=== PATIENT | female | born 1975 | race Caucasian/White ===

== ENCOUNTER → 2016-05-19 | Outpatient (CLI) | payer OTHER ==
--- NOTE | 2016-05-19 11:22 | ECHOF ---
Referral Reason:R55 syncope MEASUREMENTS -------- HEIGHT: 160.0 cm WEIGHT: 86.2 kg BP: 142/69 RVIDd: 3.0 cm (< 3.3) IVSd: 1.2 cm (0.6 - 1.1) LVIDd: 4.5 cm (3.9 - 5.3) LVPWd: 1.1 cm (0.6 - 1.1) IVSs: 1.6 cm LVIDs: 3.1 cm LVPWs: 1.5 cm LA Diam: 3.1 cm (2.7 - 3.8) LAESV Index (A-L): 18.44 ml/m Ao Diam: 3.6 cm (2.0 - 3.7) AV Cusp: 2.0 cm (1.5 - 2.6) MV EXCURSION: 18.872 mm (> 18.000) MV EF SLOPE: 106 mm/s (70 - 150) EPSS: 0.7 cm MV E Ricardo: 1.02 m/s MV DecT: 206 ms MV A Ricardo: 0.80 m/s MV E/A Ratio: 1.28 FINDINGS -------- Sinus rhythm. This was a technically good study. The left ventricular size is normal. There is borderline concentric left ventricular hypertrophy. Overall left ventricular systolic function is normal with, an EF between 55 - 60 %. The right ventricle is normal in size. Normal LA size by volume 22+/-6 ml/m2. The right atrium is normal in size. The aortic valve is trileaflet and appears structurally normal. The mitral valve is normal. The tricuspid valve appears structurally normal. No regurgitation noted The pulmonic valve was not well visualized. There is no pulmonic regurgitation present. The aortic root size is normal. Normal inferior vena cava with normal inspiratory collapse consistent with estimated right atrial pressure of 5 mmHg. There is no pericardial effusion. CONCLUSIONS -------- 1. Sinus rhythm. 2. No regurgitation noted 3. The pulmonic valve was not well visualized. 4. There is no pulmonic regurgitation present. 5. The aortic root size is normal. 6. Normal inferior vena cava with normal inspiratory collapse consistent with estimated right atrial pressure of 5 mmHg. 7. There is no pericardial effusion. 8. This was a technically good study. 9. The left ventricular size is normal. 10. There is borderline concentric left ventricular hypertrophy. 11. The right ventricle is normal in size. 12. Normal LA size by volume 22+/-6 ml/m2. 13. The aortic valve is trileaflet and appears structurally normal. 14. The mitral valve is normal. 15. The tricuspid valve appears structurally normal. PATCH WORKER: Aura Zhang RDCS
== END | disposition home or self-care (01) ==
LOC: RADECHMAIN 08:36
PROVIDERS: ATTEND Internal Medicine
DX: I51.7 Cardiomegaly (principal)
CPT/HCPCS: 93306

== ENCOUNTER → 2016-05-20 | Outpatient (CLI) | payer OTHER ==
[2016-05-20 07:53] LABS: Blood Urea Nitrogen 7 mg/dL (7-17); Non-African American GFR(MDRD) >60 (>60 ml/min/1.73 sqM)
--- NOTE | 2016-05-20 09:13 | MR ---
EXAMINATION TYPE: MR brain wo/w con DATE OF EXAM: 05/20/2016 9:04 AM COMPARISON: Prior MRI brain October 05, 2015. HISTORY: Headaches per order. Additional symptoms of syncope per patient. TECHNIQUE: Multiplanar, multisequence images of the brain and brainstem is performed without and with IV contras t, utilizing 20 mL intravenous MultiHance . FINDINGS: Diffusion weighted images demonstrate no evidence of a recent infarct or other diffusion ab normality. There is no worrisome extra-axial fluid collection. The ventricular system and cisternal spaces are normal in size and appearance. The brain volume is age appropriate. There are scattered foci of T2 hyperintensity seen throughout the white matter bilaterally most pronounced involving the subcortical white matter of the frontal lobes. I estimates 30-35 scattered lesions without significan t change in size or number from prior exam. For reference 3 lesions are noted bilaterally on axial im age 20 unchanged in size and appearance from prior study image 21. For reference there is 4 mm round lesion left frontal lobe on axial image 24 unchanged from prior study, adjacent 3 mm lesion is unchan ged. No definitive infratentorial lesion, artifact felt present on prior study in the negrito as did not reproduce on T2 axial sequence. Midline structures demonstrate normal morphology. The craniocervical junction appears within normal limits. Post contrast images demonstrate no abnormal enhancement. The dural venous sinuses appear pa tent. The visualized sinuses are clear and the globes are intact. IMPRESSION: Fairly moderate nonspecific white matter changes redemonstrated as detailed above. Findin gs may be product of ischemic change related to known migraine headaches. Other etiologies are not ex cluded. No new or enhancing lesions are evident. Findings felt stable from prior exam.
== END | disposition home or self-care (01) ==
LOC: RADMRIMAIN 07:33
PROVIDERS: ATTEND Psychiatry & Neurology Neurology
DX: R90.82 White matter disease, unspecified (principal)
CPT/HCPCS: 82565; 84520; 70553; A9577

== ENCOUNTER → 2017-06-28 | Outpatient (CLI) | payer OTHER ==
--- NOTE | 2017-06-28 08:50 | MR ---
EXAMINATION TYPE: MR cervical spine wo con DATE OF EXAM: 06/28/2017 COMPARISON: 10/05/2015 HISTORY: Cervical Disc degeneration TECHNIQUE: Multiplanar, multisequence images of the cervical spine were acquired. FINDINGS: The cervical spine vertebral bodies maintain normal vertebral body height and alignment. Darryl ne marrow signal is within normal limits. Spinal cord signal of the visualized cervical spine is also within normal limits. Posterior fossa is unremarkable. C2-C3: There is a small central disc osteophyte complex identified without spinal canal stenosis or n eural foraminal narrowing. C3-C4: There is mild left uncovertebral hypertrophy minimally narrowing the left neural foramen. Ther e is also disc desiccation without focal disc herniation. Right neural foramen and spinal canal are p atent. C4-C5: There is a small left eccentric broad-based disc bulge minimally effacing the ventral subarach noid space with preservation of cerebrospinal fluid between the disc bulge and the cervical spinal co rd. No neural foraminal narrowing. C5-C6: There is a right paracentral disc herniation/extrusion with 4 mm cranial extension of the disc fragment. This effaces the ventral subarachnoid space and creates mild spinal canal stenosis. No alt eration of the spinal cord signal. Minimal uncovertebral hypertrophy is seen without neural foraminal narrowing bilaterally. C6-C7: Disc desiccation is noted. No disc bulge/herniation or protrusion. No Canal stenosis. Beba wendy are patent bilaterally. There is very mild uncovertebral hypertrophy bilaterally. C7-T1: No evidence for degenerative disc disease. No disc bulge/herniation or protrusion. No Canal stenosis. Foramina are patent bilaterally. There is slight heterogeneity of the thyroid gland, similar to exam of 2016. IMPRESSION: 1. Progressed degenerative disc disease now with focal disc herniation at C5-C6 and the location of t he previously seen disc bulge. This herniation has a component of 4 mm cranial extension/extrusion of the disc material an results in mild spinal canal stenosis. 2. Mild multilevel degenerative disc disease resulting in mild left neural foraminal narrowing at C3- C4.
== END | disposition home or self-care (01) ==
LOC: RADMRIMAIN 06:12
PROVIDERS: ATTEND Physician Assistant Medical
DX: M48.02 Spinal stenosis, cervical region (principal); M99.71 Connective tissue and disc stenosis of intervertebral foramina of cervical region; M50.221 Other cervical disc displacement at C4-C5 level; M50.322 Other cervical disc degeneration at C5-C6 level; I10 Essential (primary) hypertension
CPT/HCPCS: 72141

== ENCOUNTER → 2018-07-26 | Outpatient (CLI) | payer OTHER ==
--- NOTE | 2018-07-26 12:18 | CONS ---
CONSULTATION DATE OF SERVICE: 07/26/2018 A 42-year-old lady who has been evaluated in the Sleep Center for possible obstructive sleep apnea-hypopnea syndrome and significant excessive daytime sleepiness. HISTORY OF PRESENT ILLNESS/SLEEP-WAKE EVALUATION: Patient had been diagnosed with obstructive sleep apnea about 10 years ago, was treated with CPAP at that time, but then for different reasons, CPAP was stopped. Presently, she snores and has multiple awakenings from sleep up to 5 times with dry mouth, panic attack, heartburn, and restless legs. Her sleep schedule on working days from 8 p.m. to 6 a.m., on weekends from 9 p.m. to 6 a.m. and sometimes she has problem with falling asleep. She is using trazodone at bedtime to help her to fall asleep and sleep at night. She has TV set in bedroom, usually sleeps on the side position. She wakes up from sleep up to 5 times with 3 episodes of nocturia, positive history of kicking at night. No history of hypnagogic hallucinations, sleep paralysis or cataplexy. In the morning, patient wakes up tired, has difficulties to pay attention, falling asleep during the day. Worry about her sleep, has problems with memory, concentration, irritability, depression and anxiety. [place] Sleepiness Scale significantly increased to 22. PAST MEDICAL HISTORY: Positive for COPD, rheumatoid arthritis, fibromyalgia, depression, bipolar disorder. PAST SURGICAL HISTORY: , bilateral surgery for carpal tunnel syndrome, surgery for two disc replacement in her neck at the level of C4 and C5 in 2018. MEDICATIONS: Ibuprofen, gabapentin, Saphris, [place], albuterol, topiramate, duloxetine, trazodone. SOCIAL HISTORY: Positive for smoking for about 20 years, starting from 2 packs a day now one pack a day. Alcohol consumption rarely. FAMILY HISTORY: Hypertension, hyperlipidemia, epilepsy, fibromyalgia, arthritis, sleep apnea, headaches, narcolepsy, acid reflux, restless legs. REVIEW OF SYSTEMS: Multiple awakenings from sleep, significant excessive daytime sleepiness. Patient takes two naps a day, usually in the evening. Does not feel refreshed after naps and see vivid dreams during naps. PHYSICAL EXAM: Compassionate lady without distress. BP 121/88, HR 89, R RR 16, height 5 foot 3-1/2 inches, weight 181.6 pounds, body mass index 32. Temperature 98.3, oxygen saturation at room air 98/ OROPHARYNX: Extremely low position of soft palate, Mallampati 4. NECK: 15-1/2 inches in circumference. ABDOMEN:: Slightly obese. LUNGS Clear to percussion and to auscultation. Good air exchange. No wheezing or rhonchi. HEART S1, S2 regular. No murmurs, gallops, or rubs. EXTREMITIES No clubbing or cyanosis. SKILL TRAINING PROGRAM COORDINATOR Awake, alert, and oriented X3. Cranial nerves 2 to 7 intact. There is no fasciculation or atrophy. noted. No focal deficits observed. Possibly slight ulnar deformation of the hands. IMPRESSION: 1. Snoring, multiple awakenings from sleep, extremely low position of soft palate. 2. History of obstructive sleep apnea in the past, i.e., significant excessive daytime sleepiness. Obstructive sleep apnea-hypopnea syndrome. 3. Significant excessive daytime sleepiness. [place] Sleepiness Scale is in the 75 range of 22. Dreams during naps. 4. History of narcolepsy in the family. Differential diagnosis should include hypersomnia including narcolepsy. 5. History of chronic obstructive pulmonary disease, smoker for close to 40 pack years. Continued to smoke. 6. History of rheumatoid arthritis. 7. History of fibromyalgia. 8. History of depression. 9. History of bipolar disorder. 10.Status post . 11.History of carpal tunnel syndrome bilaterally, status post surgical treatment. 12.History of neck arthritis, status post two disc replaced from the level C4-C5 in 2018. PLAN: 1. Polysomnography for evaluation of patient's breathing during sleep. 2. CPAP/BiPAP titration if sleep study confirms obstructive sleep apnea-hypopnea syndrome. 3. Preferable position during sleep on the side. 4. No driving if patient feels any sleepiness. 5. I will see patient for follow up visit to explain results of testing and following plan. 6. Multiple sleep latency test if sleep study will be negative for obstructive sleep apnea-hypopnea syndrome. Thank you very much for referring this patient for consultation. Sincerely, Bernard Saxena MD, PhD, FAASM Diplomat of [employer] Bombsight Specialist of [facility] [place] MMODL / IJN: [id number] /
== END ==
LOC: SLEEP 10:56
PROVIDERS: ATTEND Internal Medicine
DX: G47.33 Obstructive sleep apnea (adult) (pediatric) (principal); J44.9 Chronic obstructive pulmonary disease, unspecified; F17.219 Nicotine dependence, cigarettes, with unspecified nicotine-induced disorders; M06.9 Rheumatoid arthritis, unspecified; M79.7 Fibromyalgia; F31.9 Bipolar disorder, unspecified; E66.9 Obesity, unspecified; M47.812 Spondylosis without myelopathy or radiculopathy, cervical region; Z98.890 Other specified postprocedural states; Z87.39 Personal history of other diseases of the musculoskeletal system and connective tissue; Z68.32 Body mass index [BMI] 32.0-32.9, adult; Z83.6 Family history of other diseases of the respiratory system; Z79.891 Long term (current) use of opiate analgesic; Z79.51 Long term (current) use of inhaled steroids; Z79.1 Long term (current) use of non-steroidal anti-inflammatories (NSAID); Z79.899 Other long term (current) drug therapy
CPT/HCPCS: 99211

== ENCOUNTER → 2018-09-12 | Outpatient (CLI) | payer OTHER ==
--- NOTE | 2018-09-12 12:41 | SFUN ---
SLEEP CENTER FOLLOW UP NOTE DATE OF SERVICE: 09/12/2018 A 42-year-old lady who has been followed in the Sleep Center to discuss results of sleep studies and following plan. The patient continued to have extreme symptoms of sleepiness. [place] Sleepiness Scale today is 22. I discussed results of sleep studies with patient in detail. A diagnostic polysomnogram did not show any significant respiratory abnormalities. Total apnea- hypopnea index only 1.3, normal oxygenation during the sleep. The following multiple sleep latency test consisted from 5 naps. The patient fell asleep on all naps very quickly. Mean sleep latency was very short 4.7 minutes and that with severe migraine which patient experienced at the time of . Without migraine, I believe her sleep latency will be more short. MEDICATIONS: Ibuprofen, gabapentin, Saphris, [place], albuterol, topiramate, duloxetine, trazodone. PHYSICAL EXAM: Patient in no distress. BP 129/77, HR 90, RR 16, temperature 97.4. HEENT PERRLA, EOMI, evaluation of oropharynx showed tongue protrudes midline. Neck Supple, no JVD. Thyroid is not palpable. LUNGS Clear to percussion and to auscultation. Good air exchange. No wheezing or rhonchi. HEART S1, S2 regular. No murmurs, gallops, or rubs. ABDOMEN Soft and nontender. Bowel sounds are present. No organomegaly appreciated. EXTREMITIES No clubbing or cyanosis. GRAPHIC ART SALES REPRESENTATIVE Awake, alert, and oriented X3. Cranial nerves 2 to 7 intact. There is no fasciculation or atrophy. noted. No focal deficits observed. IMPRESSION: 1. Multiple sleep latency test confirmed sleepiness even while patient has migraine attack while she was on during the test. Mean sleep latency 4.7 minutes. No sleep onset REM periods have been documented, but again patient had a migraine at the time of the test, narcolepsy. 2. History of chronic obstructive pulmonary disease. 3. History of depression. 4. History of bipolar. 5. Status post bilateral surgery for carpal tunnel syndrome. PLAN: 1. Patient will be started on the smallest dose of Adderall 5 mg in the morning and around 1 pm. I will adjust the dose accordingly to prevent her sleepiness. 2. Patient referred symptoms of any side effects as soon as possible in view of the present relationship to mood, heart rate and blood pressure. 3. Sleep hygiene with regular time in bed for at least 7-1/2 - 8 hours. 4. Daytime naps permitted. 5. No driving if feeling any sleepiness. 6. Followup visit in 2 to 3 months. Thank you very much for allowing me to participate in the management of your patient. Sincerely, Bernard Saxena MD, PhD, FAASM Diplomat of [employer] Board of Internal Medicine Integrity Analyst of [facility] [place] MMODL / MEGHANN: [id number] /
== END | disposition home or self-care (01) ==
LOC: SLEEP 11:01
PROVIDERS: ATTEND Internal Medicine
DX: G47.10 Hypersomnia, unspecified (principal); G43.909 Migraine, unspecified, not intractable, without status migrainosus; G47.419 Narcolepsy without cataplexy; Z86.59 Personal history of other mental and behavioral disorders; Z87.09 Personal history of other diseases of the respiratory system; Z87.39 Personal history of other diseases of the musculoskeletal system and connective tissue; Z98.890 Other specified postprocedural states; Z79.891 Long term (current) use of opiate analgesic; Z79.899 Other long term (current) drug therapy

== ENCOUNTER → 2020-04-16 | Outpatient (CLI) | payer OTHER ==
--- NOTE | 2020-04-16 23:48 | MR ---
EXAMINATION TYPE: MR cspine/lspine wo con DATE OF EXAM: 04/16/2020 COMPARISON: MRI lumbar spine October 05, 2015. MRI cervical spine June 28, 2017. HISTORY: Headaches, Neck pain into both arms. Middle lower back pain into buttocks. TECHNIQUE: Multiplanar, multisequence imaging of the cervical and lumbar spine are performed without IV contrast. FINDINGS: Current exam suboptimal as is degraded by patient motion. C-SPINE: FINDINGS: Sagittal images of the cervical spine show the craniocervical junction to remain within nor mal limits. The cervical and upper thoracic spinal cord is likely normal in caliber and signal. Esther fact degradation is present. There is interval surgery with artifact from surgical hardware at C5-C6 level. The vertebral body and intravertebral disk heights are normal above and below surgical levels . The bone marrow signal intensity is within normal limits above and below surgical levels. Axial images show C2-C3 level to remain within normal limits. Axial images at C3-C4 level demonstrates left-sided uncovertebral facet degenerative change causing m inimal left-sided neural foraminal narrowing. There is tiny disc protrusion minimally effacing anteri or thecal sac. No significant change from prior. Axial images at C4-C5 level redemonstrate left broad-based posterior disc protrusion mildly facing an terior thecal sac, PA and bilateral neural foramina. No significant change from prior. Axial images at C5-C6 level show significant blooming artifact from interval surgical change making e valuation suboptimal. Axial images at C6-C7 level show artifact from surgical change. There are patent bilateral neural for dwayne. The spinal canal preserved. Axial images at C7-T1 level remain within normal limits. IMPRESSION: Current exam suboptimal. Interval surgery C5-C6 level. Stable mild degenerative changes o therwise noted. L-SPINE: Sagittal images of the lumbar spine show vertebral body heights and alignment to remain satisfactory. Persistent multilevel disc desiccation and disc space heights are maintained. The conus medullaris remains normal in position and signal ending mid L1 level. The bone marrow signal intensity shows sc attered small anterior hemangiomas. Axial images show T12-L1, L1-L2, and L2-L3 levels all to remain within normal limits. Axial images at L3-L4 level redemonstrate mild facet degenerative changes bilaterally. Axial images at L4-L5 level redemonstrated mild facet degenerative changes bilaterally. There is broa d-based posterior disc protrusion minimally effaces the anterior thecal sac. No significant change fr om prior. Axial images at L5-S1 level mild facet degenerative changes bilaterally. Spinal canal is preserved. Bilateral neural foramina. No significant change from prior. Paraspinal muscle bulk is maintained. IMPRESSION: Mild multilevel degenerative changes mid to lower lumbar spine as detailed above. No sign ificant change from prior MRI.
== END | disposition home or self-care (01) ==
LOC: RADMRIMAIN 16:19
PROVIDERS: ATTEND Internal Medicine
DX: M47.812 Spondylosis without myelopathy or radiculopathy, cervical region (principal); M47.816 Spondylosis without myelopathy or radiculopathy, lumbar region; M47.817 Spondylosis without myelopathy or radiculopathy, lumbosacral region; Z98.890 Other specified postprocedural states
CPT/HCPCS: 72141; 72148

== ENCOUNTER → 2020-07-08 | Outpatient (CLI) | payer OTHER ==
--- NOTE | 2020-07-09 06:35 | SFUN ---
SLEEP CENTER FOLLOW UP NOTE DATE OF SERVICE: 07/08/2020 44-year-old lady has been followed in Sleep Center for treatment of narcolepsy. 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 With this regimen, she is not falling asleep as she did before treatment. Still has episodes of tiredness. Sometimes developed dryness in the mouth but able to maintain her alertness. [place] Sleepiness Scale today is 20. MEDICATIONS: Waterflow twice a day, losartan 50 mg once a day, leflunomide 20 mg once a day. Hydrochlorothiazide 12.5 mg once a day, sertraline 100 mg once a day. Zolpidem 5 mg once a day. Losartan 100 mg once a day, Orencia once a month. Ibuprofen 600 mg as needed. Loperamide 100 mg once a day. Adderall as I mentioned above. Patient continued to smoke half pack a day presently for 20 years. PHYSICAL EXAMINATION: GENERAL: Patient in no distress. BP 154/84, HR 105, RR 12, height 5 feet 3-1/2 inches, weight 179.0, temperature 96.9. Oxygen saturation at room air 99%. Body mass index 31.2. HEENT: PERRLA, EOMI, evaluation of oropharynx showed tongue protrudes midline. NECK: Supple, no JVD. Thyroid is not palpable. LUNGS: Clear to percussion and to auscultation. Good air exchange. No wheezing or rhonchi. HEART: S1, S2 regular. No murmurs, gallops, or rubs. ABDOMEN: Soft and nontender. Bowel sounds are present. No organomegaly appreciated. EXTREMITIES: No clubbing or cyanosis. MOTORCYCLE SALES ASSOCIATE: Awake, alert, and oriented X3. Cranial nerves 2 to 7 intact. There is no fasciculation or atrophy. noted. No focal deficits observed. IMPRESSION: 1. Narcolepsy without cataplexy. Pathological sleepiness confirmed by multiple sleep latency test. No sleep onset REM. Although have been documented during the sleep study. 2. History of chronic obstructive pulmonary disease. 3. Rheumatoid arthritis. 4. Fibromyalgia. 5. Depression. 6. Bipolar. 7. Status post surgical treatment for carpal tunnel syndrome bilaterally. 8. Status post surgery for the disc problem in the level C4, C5. 9. Smoker, presently half pack a day. 10.Hypertension in the office. PLAN: 1. The patient will continue treatment with Adderall 3 times a day 20 mg in the morning, 20 mg in the middle of the day and then 10 mg around 4:00 pm. 2. Extreme precautions to driving. No driving if feeling sleepiness. 3. Sleep hygiene with regular time in bed for 7-1/2 to 8 hours. 4. Daytime naps permitted. 5. Follow-up visit in 4-6 months. Thank you very much for allowing me to participate in management of your patient. Sincerely, Bernard Saxena MD, PhD, FAASM Diplomat of [employer] Board of Medical Specialties Danish Board of Internal Medicine Sprinkler Fitter Apprentice of [facility] [place] MMMAMADOUL / MEGHANN: [id number] /
== END ==
LOC: SLEEP 16:28
PROVIDERS: ATTEND Internal Medicine
DX: G47.419 Narcolepsy without cataplexy (principal); J44.9 Chronic obstructive pulmonary disease, unspecified; M06.9 Rheumatoid arthritis, unspecified; M79.7 Fibromyalgia; F31.9 Bipolar disorder, unspecified; F17.210 Nicotine dependence, cigarettes, uncomplicated; I10 Essential (primary) hypertension; Z98.890 Other specified postprocedural states; Z79.1 Long term (current) use of non-steroidal anti-inflammatories (NSAID); Z79.899 Other long term (current) drug therapy

== ENCOUNTER → 2021-09-16 | Outpatient (CLI) | payer OTHER ==
--- NOTE | 2021-09-16 14:18 | P.PN ---
Subjective DATE: 09/16/2021 FOLLOW UP VISIT. Patient returned to sleep center for follow-up visit related to treatment of significant excessive daytime sleepiness secondary to narcolepsy. Presently patient is on treatment with Adderall 20 mg twice a day and the 10 mg and the second part of the day. Patient still feels sleepiness during the day for sleepiness scale significantly increased to 22.MAPS overdose risk score is 140. No side effects of Adderall. . MEDICATIONS:1. Losartan 50 mg once a day 2. Bupropion 150 mg once a day 3. Hydrocodone 750 mg as needed 4. Adderall 20 mg 2-1/2 tablet daily 5. Prednisone 5 mg once a day During physical exam: GENERAL: A pleasant patient without any distress. VITAL SIGNS: BP 181/81, HR 95, RR 18, weight 177.4, temperature 97.4, oxygen saturation at room air 97%. HEENT: PERRLA, EOMI. NECK: Supple. No JVD. LUNGS: Clear to percussion and to auscultation. Good air exchange. No wheezing or rhonchi. HEART: S1, S2 regular. ABDOMEN: Soft and nontender. EXTREMITIES: No clubbing or cyanosis. CLASSROOM MONITOR: Awake, alert, and oriented x3. No focal deficit. Impressions: 1. Narcolepsy type II. Sleepiness confirmed by multiple sleep latency test. 2. [].History of COPD 3. [].Depression 4. [].Bipolar 5. [Smokier] 6. Hypertension. 7. Status post surgical treatment of disc problems with the level of C4-C5.. Plan: 1. Patient will continue treatment with[ Adderall. Dose will be increased to 20 mg 3 times a day. ] 2. Sleep hygiene with regular time in bed for at least 8 hours. 3. Daytime naps permitted 4. Precautions related to driving. No driving if feel any sleepiness. Patient is aware about civil and criminal liability for unsafe driving, promised to follow recommendations. 5. Follow up visit in 4-6 months or earlier if patient has any problems. Thank you very much for allowing me to participate in the management of your patient. Bernard Saxena MD, PhD, FAASM. Diplomat of [place] Sleep Medicine, Sleep Medicine Board by [place] Internal Medicine Counter Tender of [facility] [place]
== END ==
LOC: SLEEP 13:37
PROVIDERS: ATTEND Internal Medicine
DX: G47.419 Narcolepsy without cataplexy (principal); J44.9 Chronic obstructive pulmonary disease, unspecified; F31.9 Bipolar disorder, unspecified; I10 Essential (primary) hypertension; Z98.890 Other specified postprocedural states

== ENCOUNTER → 2023-01-11 | Outpatient (CLI) | payer OTHER ==
--- NOTE | 2023-01-11 11:56 | P.PN ---
Subjective DATE: 01/11/2023 FOLLOW UP VISIT. Patient returned to sleep center for follow-up visit related to treatment of significant excessive daytime sleepiness secondary to narcolepsy. Patient is on treatment with Adderall 20 mg 3 times a day, with this regimen alertness mostly under control. . [place] sleepiness scale is increased to 21. Patient complain some difficulties to sleep during the night, she has awakenings from sleep. MEDICATIONS:1. Adderall 20 mg 3 times a day 2. [place] 3. Lisinopril 10 mg once a day 4. Sulfasalazine 500 mg twice a day During physical exam: GENERAL: A pleasant patient without any distress. VITAL SIGNS: BP 153/98, HR 76, RR 16 , weight 170.8, temperature 97.9, oxygen saturation at room air 99% . HEENT: PERRLA, EOMI. NECK: Supple. No JVD. LUNGS: Clear to percussion and to auscultation. Good air exchange. No wheezing or rhonchi. HEART: S1, S2 regular. ABDOMEN: Soft and nontender. EXTREMITIES: No clubbing or cyanosis. SOUND RANGING CREWMEMBER: Awake, alert, and oriented x3. No focal deficit. Impressions: 1. Narcolepsy type II. Sleepiness confirmed by multiple sleep latency test. Awakenings from sleep at night 2. History of COPD. 3. History of depression. 4. History of bipolar. 5. Smokier. 6. Hypertension. 7. Status post surgical treatment for disc problems in the level of C4-C5. 8. History of rheumatoid arthritis. Plan: 1. Patient will continue treatment with Adderall 20 mg 3 times a day. I will start patient additionally on clonazepam 0.5 mg at bedtime to prevent awakenings from sleep. If necessary dose of clonazepam will be increased. 2. Sleep hygiene with regular time in bed for at least 8 hours. 3. Daytime naps permitted 4. Precautions related to driving. No driving if feel any sleepiness. Patient is aware about civil and criminal liability for unsafe driving, promised to follow recommendations. 5. Follow up visit in 4-6 months or earlier if patient has any problems. Thank you very much for allowing me to participate in the management of your patient. Bernard Saxena MD, PhD, FAASM. Diplomat of [employer] Board of Sleep Medicine, Sleep Medicine Board by [employer] of Internal Medicine Assembly Machine Set Up Mechanic of [facility] [place]
== END ==
LOC: 3 N SLEEP 11:06
PROVIDERS: ATTEND Internal Medicine
DX: G47.419 Narcolepsy without cataplexy (principal); J44.9 Chronic obstructive pulmonary disease, unspecified; F31.9 Bipolar disorder, unspecified; F17.200 Nicotine dependence, unspecified, uncomplicated; I10 Essential (primary) hypertension; M06.9 Rheumatoid arthritis, unspecified; Z98.890 Other specified postprocedural states; Z79.899 Other long term (current) drug therapy
CPT/HCPCS: 99212

== ENCOUNTER → 2023-07-12 | Outpatient (CLI) | payer OTHER ==
--- NOTE | 2023-07-12 11:25 | P.PN ---
Subjective DATE: 07/12/2023 FOLLOW UP VISIT. Patient returned to sleep center for follow-up visit related to treatment of significant excessive daytime sleepiness secondary to narcolepsy. Patient is on treatment with Adderall 20 mg 3 times a day. With medication he will alertness during the day improved. Warren sleepiness scale is still significantly inc reased to 23. Patient complains of multiple awakenings from sleep and snoring. She increased show weight since previous sleep study 1 year ago. MEDICATIONS:1. Adderall 20 mg 3 times a day 2. [place] During physical exam: GENERAL: A pleasant patient without any distress. VITAL SIGNS: Please see below, weight 188.4 pounds. HEENT: PERRLA, EOMI. NECK: Supple. No JVD. LUNGS: Clear to percussion and to auscultation. Good air exchange. No wheezing or rhonchi. HEART: S1, S2 regular. ABDOMEN: Soft and nontender. EXTREMITIES: No clubbing or cyanosis. 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 No focal deficit. Impressions: 1. Narcolepsy type II. 2. Multiple awakenings from sleep, snoring, possible obstructive sleep apnea hypopnea syndrome. Patient increased her weight on 18 pounds comparing with the previous visit. 3. History of COPD. 4. History of depression. 5. History of bipolar. 6. Patient continues to smoke. 7. Hypertension. 8. History of rheumatoid arthritis. 9. Status post surgical treatment for disc problems on C4-C5 level. Plan: 1. Patient will continue treatment with Adderall 20 mg 3 times a day 2. Sleep hygiene with regular time in bed for at least 8 hours. 3. Daytime naps permitted 4. Precautions related to driving. No driving if feel any sleepiness. Patient is aware about civil and criminal liability for unsafe driving, promised to follow recommendations. 5. Will repeat polysomnogram to reevaluate patient breathing during sleep for possible obstructive sleep apnea hypopnea syndrome. 6. Following plan after reading sleep study. Thank you very much for allowing me to participate in the management of your patient. Bernard Saxena MD, PhD, FAASM. Diplomat of [employer], Sleep Medicine Board by [employer] Customer Engineering Specialist of [facility] [place] Objective - Vital Signs Vital signs: Vital Signs Temp 98.4 F 07/12/23 10:58 Pulse 88 07/12/23 10:58 Resp 16 07/12/23 10:58 BP 154/81 07/12/23 10:58 Pulse Ox 97 07/12/23 10:58 FiO2 Intake & Output 07/11/23 07/12/23 07/12/23 18:59 06:59 18:59 Weight 85.389 kg
[2023-07-12 11:50] VITALS: BP 154/81; PULSE 88; RESP 16; TEMP 98.4
== END | disposition home or self-care (01) ==
LOC: 3 N SLEEP 10:48
PROVIDERS: ATTEND Internal Medicine
DX: G47.33 Obstructive sleep apnea (adult) (pediatric) (principal); G47.419 Narcolepsy without cataplexy; J44.9 Chronic obstructive pulmonary disease, unspecified; F31.9 Bipolar disorder, unspecified; F17.200 Nicotine dependence, unspecified, uncomplicated; I10 Essential (primary) hypertension; M06.9 Rheumatoid arthritis, unspecified
CPT/HCPCS: 99212

== ENCOUNTER 2023-08-22 19:44 | Outpatient (CLI) | payer OTHER ==
--- NOTE | 2023-08-23 13:47 | P.PCN ---
Description of Procedure: POLYSOMNOGRAPHY REPORT PROCEDURE(S)/DATE(S): Polysomnography 08/22/2023 CLINICAL: Patient has been seen i and treated n the sleep center for narcolepsy. Patient has symptoms of possible obstructive sleep apnea-hypopnea syndrome. Please see my notes from follow-up visit. Sleep study has been done for evaluation of patient breathing during the sleep. PROCEDURE: The standard montage for clinical polysomnography included the electroencephalogram, the electrooculogram, the mentalis surface electromyography and Lead II cardiography. The respiratory battery consisted of measurements of nasal/buccal air flow, pressure transducer measurements from nose, thoracic and/or abdominal effort and intercostal surface electromyography. Video monitoring has been done to check for any parasomnia events. Nocturnal oxyhemoglobin saturations were obtained by finger oximetry. Step-dee titration with positive airway pressure was utilized to control the respiratory events, if necessary. RESULTS: During the diagnostic sleep study sleep efficiency was significantly decreased to 66.9%. Latency to sleep onset was significantly prolonged to 61.5 min. Sleep architecture showed stage NI was normal 6.3%, Delta sleep was short 3.5%, REM sleep was normal 20.2%. Respiratory channel showed 1 obstructive apneas, 0 mixed apneas, 0 central apneas, 2 hypopneas with lowest oxygen level 90%. Total apnea hypopnea index was 0.7. Heart rate was in the range between 60 and 72, average 66. EMG showed 0 periodic limb movements per hour. IMPRESSIONS: 1. No significant respiratory abnormalities have been documented during the sleep study. Normal oxygenation during sleep. 2. No significant periodic limb movements have been documented. 3. Long sleep latency and short sleep efficiency indicate possible insomnia versus first night adaptation response. Please see other impressions from consultation PLAN: 1. Sleep hygiene with regular time in bed for at least 7-1/2 hours. 2. Losing weight program. 3. No driving if feeling sleepiness. Thank you very much for allowing me to participate in the management of your patient. Sincerely, Bernard Saxena MD, PhD, FAASM. Diplomat of [place] [employer], Sleep Medicine Board by [employer] Shop Girl of [facility] [place]
== END 2023-08-23 04:53 | disposition home or self-care (01) ==
LOC: 3 N SLEEP 19:44
PROVIDERS: ATTEND Internal Medicine
DX: G47.33 Obstructive sleep apnea (adult) (pediatric) (principal); G47.419 Narcolepsy without cataplexy
CPT/HCPCS: 95810

== ENCOUNTER → 2024-01-10 | Outpatient (CLI) | payer OTHER ==
--- NOTE | 2024-01-10 09:28 | CTL ---
EXAMINATION TYPE: CT Low Dose Lung DATE OF EXAM: 01/10/2024 8:45 AM COMPARISON: None. CLINICAL INDICATION: Female, 48 years old with history of Z12.2 ENCNTR SCREEN FOR MALIGNANT NEOPLASM OF RESP; SMOKER, history of tobacco use. TECHNIQUE: Multiple axial non-contrast scans were obtained from approximately the lung apices through the upper abdomen. Coronal and sagittal reformatted images were obtained. Low dose technique was uti lized. MIP were created on a separate workstation and submitted for review. CT DLP: 97.2 mGycm, Automated exposure control for dose reduction was used. CT Contrast: Contrast used: None Oral contrast used: None FINDINGS: Lack of intravenous contrast and low dose technique limits the evaluation of the vascular and soft ti ssue structures. LUNGS: No evidence of pulmonary fibrosis. No evidence of focal consolidation, pneumothorax or pleural effusion. Centrilobular emphysema changes. Nodules: RUL: Parenchymal scarring series 6 image 12r measuring 3 mm in the area more anteriorly image 16 measuring 3 mm. RML: None RLL: None. MANDI: None. LLL: 17 mm left lower lobe subsolid mass like opacity along the pleura. Intrafissural lymph node also present series 6 image 24. AIRWAY: Patent and unremarkable. HEART: Size within normal limits. MEDIASTINUM: No gross evidence of adenopathy. VASCULATURE: No aortic aneurysm. MUSCULOSKELETAL: No acute osseous abnormalities SOFT TISSUES/LYMPH NODES: Unremarkable. LOWER NECK: No significant findings. UPPER ABDOMEN: No significant findings. IMPRESSION: Suspicious left lower lobe pulmonary nodule. Additional smaller pulmonary nodules with a benign appearance. CT LUNG RAD AND CT CHEST RECOMMENDATION: Lung-Rad 4A Suspicious: Follow-up 3 month LDCT or PET/CT may be used when there is a > 8 mm solid component. S Modifier (other clinically significant findings): None Recommend smoking cessation (if current smoker), or continuation of smoking cessation (if prior smoke r). Annual screening for lung cancer with low-dose computed tomography is recommended in adults ages 55 to 77 years who have a 30 pack-year smoking history and currently smoke or have quit within the pa st 15 years. Screening should be discontinued once a person has not smoked for 15 years or develops a health problem that substantially limits life expectancy or the ability or willingness to have curat esther lung surgery. Lung rads 2021 [email or web address] [facility], , 01/10/2024 9:25 AM
== END | disposition home or self-care (01) ==
LOC: RADCTMAIN 08:18
PROVIDERS: ATTEND Internal Medicine
DX: Z12.2 Encounter for screening for malignant neoplasm of respiratory organs (principal); F17.210 Nicotine dependence, cigarettes, uncomplicated; R91.8 Other nonspecific abnormal finding of lung field
CPT/HCPCS: 71271

== ENCOUNTER → 2024-02-01 | Outpatient (CLI) | payer OTHER ==
--- NOTE | 2024-02-04 13:15 | PE ---
EXAMINATION TYPE: PET CT fusion skull to thigh DATE OF EXAM: 02/01/2024 COMPARISON: CT chest 01/10/2024 Prior PET/CT: None CLINICAL INDICATION: Female, 48 years old with history of R91.8 lung mass, TECHNIQUE: Following the intravenous administration of 10.3 mCi of F-18 FDG, whole body images are p erformed from the skull base to the midthigh. Images are reviewed on the computer in the coronal, ax ial, and sagittal planes. Reconstructed rotating images are created on independent workstation and r eviewed on the computer. A localization and attenuation correction CT is performed in conjunction w ith the PET scan. DLP: 772.71 mGycm SCAN: Initial Blood glucose: 106 mg/dL Average Mediastinum SUV: 1.91 Average Liver SUV: 2.67 FINDINGS: NECK: No abnormal uptake THORAX: There is some focal uptake within the posterior medial left midlung nodule, image 91, SUV 2.18. There is some additional faint uptake within the posterior left mid lung image 106, SUV 3.09 ABDOMEN: No abnormal uptake PELVIS: No abnormal uptake OSSEOUS STRUCTURES: No abnormal uptake LOCALIZATION CT: Uptake in the posterior medial left midlung periphery correlates with the density on lung windows. Density in the posterior lateral left lung base correlates with the uptake on the PET scan. COMPARISON: No suspicious uptake within the lateral right apex from the CT exam. IMPRESSION: 1. There is slight elevation of uptake within densities within lung medially posterior lung and at th e posterior inferior lung. These are slightly above background. Differential diagnosis does include n eoplasm and inflammatory changes. 2. No additional suspicious uptake identified by PET CT. [facility], , 02/04/2024 1:12 PM
== END | disposition home or self-care (01) ==
LOC: RADPETMAIN 12:55
PROVIDERS: ATTEND Internal Medicine Critical Care Medicine
DX: J98.4 Other disorders of lung (principal); R91.8 Other nonspecific abnormal finding of lung field
CPT/HCPCS: 78815; A9552

== ENCOUNTER → 2024-07-31 | Outpatient (CLI) | payer OTHER ==
--- NOTE | 2024-08-03 19:42 | CT ---
EXAMINATION TYPE: CT chest w con DATE OF EXAM: 07/31/2024 11:24 AM COMPARISON: PET CT 02/01/2024 CLINICAL INDICATION: Female, 48 years old with history of R91.8 SPN, lung nodules TECHNIQUE: Axial images were obtained at 5 mm thick sections. Reconstructed images are reviewed on [employer] computer in the coronal plane. Contrast used:100 mL of Isovue 300 with IV Contrast, (none if empty) Oral contrast used: (none if empty) CT DLP: 442.90 mGycm, Automated exposure control for dose reduction was used. FINDINGS: Portion of the thyroid visualized is normal. No suspicious lung nodules identified. Previous density posterior medial mid left lung not present on current examination. Previous posterior left mid to lower lung field density not evident on current exam. Close examination. Faint changes on the lung windows may be present on these are significantly smaller and less dense than before. No enlarged mediastinal or hilar adenopathy is evident. The ascending aorta diameter at the level o f the main pulmonary artery is 3.7 cm. The main pulmonary artery diameter at the bifurcation is 2.9 cm. No significant coronary artery calcifications. Limited CT sections are obtained through the upper abdomen. Abdomen is essentially unremarkable. IMPRESSION: 1. Resolving left lung densities from prior examination. 2. No suspicious acute pulmonary process [facility], , 08/03/2024 7:40 PM
== END | disposition home or self-care (01) ==
LOC: RADCTMAIN 10:12
PROVIDERS: ATTEND Internal Medicine Critical Care Medicine
DX: R91.8 Other nonspecific abnormal finding of lung field (principal); J98.4 Other disorders of lung
CPT/HCPCS: 71260; Q9967

== ENCOUNTER → 2024-08-07 | Outpatient (CLI) | payer OTHER ==
[2024-08-07 09:26] LABS: Amphetamine Screen,Urine Detected (NotDetected); Barbiturate Screen,Urine Not Detected (NotDetected); Benzodiazepines Screen,Urine Not Detected (NotDetected); Cocaine Screen,Urine Not Detected (NotDetected); Methadone Screen, Urine Not Detected (NotDetected); Opiate Screen,Urine Detected (NotDetected); Oxycodone Screen, Urine Not Detected (NotDetected); Phencyclidine Screen,Urine Not Detected (NotDetected); Tricyclic Antidepressant,Urine Not Detected (NotDetected); Urn Cannabinoid Scrn Not Detected (NotDetected)
== END | disposition home or self-care (01) ==
LOC: LABWHC1 07:53
PROVIDERS: ATTEND Internal Medicine
DX: G47.419 Narcolepsy without cataplexy (principal)
CPT/HCPCS: 80306